=== PATIENT | male | born 1970 | race African-American/Black ===

== ENCOUNTER 2016-10-17 16:36 | Emergency (ER) | payer OTHER ==
[2016-10-17 16:42] VITALS: BP 106/72; PULSE 54; RESP 18; TEMP 98.4; O2SAT 96
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
== END 2016-10-17 17:13 | disposition home or self-care (01) ==
DX: S16.1XXA Strain of muscle, fascia and tendon at neck level, initial encounter (principal); V89.2XXA Person injured in unspecified motor-vehicle accident, traffic, initial encounter